=== PATIENT | male | born 1990 | race Caucasian/White ===

== ENCOUNTER 2017-12-24 18:11 | Emergency (ER) | payer BC, OTHER ==
[2017-12-24] MEDS ORDERED: Bacitracin Oint 1 GM U/D Packet TOP ONE (18:44)
[2017-12-24] MEDS ORDERED: Lidocaine 1% 20 ML MDV INJECT ONE (18:44)
[2017-12-24] MEDS ORDERED: Lidocaine 1% 20 ML MDV ONE (18:47)
--- NOTE | 2017-12-24 19:06 | EDM.PDOC ---
ED HPI GENERAL MEDICAL PROBLEM - General Chief Complaint: Laceration Stated Complaint: PT HURT LT HAND Time Seen by Provider: 12/24/17 18:25 Source of Information: Reports: Patient History Limitations: Reports: No Limitations - History of Present Illness INITIAL COMMENTS - FREE TEXT/NARRATIVE: Gen. adultHISTORY AND PHYSICAL: History of present illness: Patient is a 27-year-old male who presents to the emergency room with complaints of a saturation to the left lateral/ulnar hand. States he was working with some metal when it slipped out of his hand resulting in lacerating dorsal surface. Tetanus has been updated within the last 3 years. Review of systems: As per history of present illness and below otherwise all systems reviewed and negative. Past medical history: As per history of present illness and as reviewed below otherwise noncontributory. Surgical history: As per history of present illness and as reviewed below otherwise noncontributory. Social history: No reported history of drug or alcohol abuse. Family history: As per history of present illness and as reviewed below otherwise noncontributory. Physical exam: General: Well-developed and well-nourished 27-year-old male. Alert and oriented. Nontoxic appearing and in no acute distress. HEENT: Atraumatic, normocephalic, pupils equal and reactive bilaterally, negative for conjunctival pallor or scleral icterus, mucous membranes moist, throat clear, neck supple, nontender, trachea midline. No drooling or trismus noted. No meningeal signs Lungs: Clear to auscultation, breath sounds equal bilaterally, chest nontender. Heart: S1S2, regular rate and rhythm without overt murmur Abdomen: Soft, nondistended, nontender. Negative for masses or hepatosplenomegaly. Negative for costovertebral tenderness. Pelvis: Stable nontender. Genitourinary: Deferred. Rectal: Deferred. Skin: 1.5 cm laceration to the left ulnar dorsal surface of hand. Otherwise intact, warm, dry Extremities: Moves all extremities per self, without difficulty or deficeits. Strong grasp and no tendon involvement of the left hand. Strong radial pulse with cap refill less than 3 seconds. Neurovascular unremarkable. Neuro: Awake, alert, oriented. Cranial nerves II through XII unremarkable. Cerebellum unremarkable. Motor and sensory unremarkable throughout. Exam nonfocal. Notes: 1% lidocaine was used to anesthetize the area. Area was cleansed with chlorhexidine and normal saline. Then involvement noted. 4-0 nylon, #3 interrupted sutures. Bacitracin dressing applied. Tolerated well. Diagnostics: [] Therapeutics: 1% lidocaine, bacitracin ointment, dressing Impression: Laceration Plan: 1. Please keep the area clean and dry. Monitor for signs of infection. 2. Sutures to be removed in 7-10 days. 3. Tylenol and/or ibuprofen as needed for pain management. 4. Follow-up with your primary care provider in the next couple days. Return to the ED as needed and as discussed. Definitive disposition and diagnosis as appropriate pending reevaluation and review of above. Onset: Today Duration: Minutes: Location: Reports: Upper Extremity, Left Left Upper Hand Pain Score (Numeric/FACES): 1 - Related Data Allergies Allergy/AdvReac Type Severity Reaction Status Date / Time No Known Allergies Allergy Verified 12/24/17 18:32 Home Meds: Home Meds . [No Known Home Meds] 12/24/17 [History] Past Medical History - Past Surgical History HEENT Surgical History: Reports: Adenoidectomy, Tonsillectomy GI Surgical History: Reports: Appendectomy Social & Family History - Family History Family Medical History: Noncontributory - Tobacco Use Smoking Status *Q: Current Some Day Smoker Years of Tobacco use: 7 Packs/Tins Daily: 0.1 - Caffeine Use Caffeine Use: Reports: Coffee, Energy Drinks, Soda - Recreational Drug Use Recreational Drug Use: No ED ROS GENERAL - Review of Systems Review Of Systems: See Below ED EXAM, SKIN/RASH Exam: See Below (See dictation) ED SKIN PROCEDURES - Laceration/Wound Repair Left hand Lac/Wound length In cm: 1.5 Appearance: Subcutaneous Distal NVT: No Tendon Injury Local Anesthesia - Lidocaine (Xylocaine): 1% Plain Local Anesthetic Volume: 5cc Skin Prep: Chlorhexidine (Hibiciens), Saline Exploration/Debridement/Repair: Wound Explored, No Foreign Material Found Closed with: Sutures Suture Size: 4-0 # of Sutures: 3 Suture Type: Nylon Sterile Dressing Applied: Provider Tetanus Status Addressed: Yes Complications: No Course - Vital Signs Last Recorded V/S: Last Vital Signs Temp 98.1 F 12/24/17 18:28 Pulse 91 12/24/17 18:28 Resp 18 12/24/17 18:28 BP 142/87 H 12/24/17 18:28 Pulse Ox 96 12/24/17 18:28 - Orders/Labs/Meds Meds: Medications Discontinued Medications Generic Name Dose Route Start Last Admin Trade Name Lynn PRN Reason Stop Dose Admin Bacitracin 1 dose 12/24/17 18:44 Bacitracin Oint 1 Gm TOP 12/24/17 18:45 ONETIME ONE Lidocaine HCl 20 ml 12/24/17 18:44 Xylocaine 1% INJECT 12/24/17 18:45 ONETIME ONE Lidocaine HCl Confirm 12/24/17 18:47 Xylocaine 1% Administered 12/24/17 18:48 Dose 20 ml .ROUTE .STK-MED ONE Departure - Departure Time of Disposition: 19:04 Disposition: Home, Self-Care 01 Clinical Impression: Laceration - Discharge Information Instructions: Laceration Care, Adult, [id number] Referrals: PCP,None [Primary Care Provider] - Forms: ED Department Discharge Additional Instructions: The following information is given to patients seen in the emergency department who are being discharged to home. This information is to outline your options for follow-up care. We provide all patients seen in our emergency department with a follow-up referral. The need for follow-up, as well as the timing and circumstances, are variable depending upon the specifics of your emergency department visit. If you don't have a primary care physician on staff, we will provide you with a referral. We always advise you to contact your personal physician following an emergency department visit to inform them of the circumstance of the visit and for follow-up with them and/or the need for any referrals to a consulting specialist. The emergency department will also refer you to a specialist when appropriate. This referral assures that you have the opportunity for follow-up care with a specialist. All of these measure are taken in an effort to provide you with optimal care, which includes your follow-up. Under all circumstances we always encourage you to contact your private physician who remains a resource for coordinating your care. When calling for follow-up care, please make the office aware that this follow-up is from your recent emergency room visit. If for any reason you are refused follow-up, please contact the [facility] Emergency Department at and asked to speak to the emergency department charge nurse. [facility] [address] [place] [id number] 1. Please keep the area clean and dry. Monitor for signs of infection. 2. Sutures to be removed in 7-10 days. 3. Tylenol and/or ibuprofen as needed for pain management. 4. Follow-up with your primary care provider in the next couple days. Return to the ED as needed and as discussed.
== END 2017-12-24 19:15 | disposition home or self-care (01) ==
LOC: MW.ED 18:11
DX: S61.412A Laceration without foreign body of left hand, initial encounter (principal); F17.210 Nicotine dependence, cigarettes, uncomplicated; W26.8XXA Contact with other sharp object(s), not elsewhere classified, initial encounter
CPT/HCPCS: 99283

== ENCOUNTER 2023-03-31 17:51 | Emergency (ER) | payer OTHER ==
[2023-03-31] MEDS ORDERED: Ibuprofen 600 MG Tab PO ONE (18:06)
== END 2023-03-31 18:58 | disposition home or self-care (01) ==
LOC: MW.ED 17:51
DX: S49.92XA Unspecified injury of left shoulder and upper arm, initial encounter (principal); Z86.16 Personal history of COVID-19; X50.0XXA Overexertion from strenuous movement or load, initial encounter; Y99.0 Civilian activity done for income or pay
CPT/HCPCS: 73030; 99283; A9270